=== PATIENT | male | born 1975 | race Caucasian/White ===

== ENCOUNTER 2023-09-08 11:11 | Emergency (ER) | payer OTHER, SELFPAY ==
[2023-09-08 11:22] VITALS: BP 172/88; PULSE 70; RESP 15; TEMP 37.3; O2SAT 94; O2SAT 97
[2023-09-08 11:23] VITALS: BP 172/88; PULSE 76; O2SAT 97
[2023-09-08 11:30] VITALS: O2SAT 94
[2023-09-08 11:31] VITALS: BP 177/110; PULSE 77; O2SAT 95
[2023-09-08 11:40] VITALS: O2SAT 96
--- NOTE | 2023-09-08 11:45 | DI.CT_ITS ---
Exam(s) CT CHEST/ABD/PEL W CT THORACIC LUMBAR SPINE REC EXAM: CT CHEST/ABD/PEL W CLINICAL HISTORY: trauma, fell and impacted rt flank and low back. TECHNIQUE: Imaging Protocol: Axial computed tomography images with coronal and sagittal reformatted images were created and reviewed. Axial, coronal and sagittal images were reconstructed from the chest abdomen and pelvic CT utilizing bone algorithm. CONTRAST MATERIAL: Intravenous: Omnipaque 350 Contrast volume:100 ml Oral: no COMPARISON: CT CT THORACIC LUMBAR SPINE REC from 09/08/2023 FINDINGS: CHEST: Tracheobronchial tree: Patent where visualized. Pulmonary parenchyma: No consolidation or dominant measurable mass. Pleura: No effusion or pneumothorax. Lymph nodes: Within normal limits. Aorta: Thoracic portion non-dilated. Heart: No pericardial effusion. Bones: Small endplate osteophytes. No lytic or blastic lesions.No compression fractures. Soft tissues: Unremarkable. ABDOMEN and PELVIS: Liver: Normal density. No measurable mass. Gallbladder and biliary tract: No evidence of stones or wall thickening. No biliary dilatation. Pancreas: Normal density, no abnormal calcifications or inflammatory process. Spleen: Normal. Kidneys: Normal size, contour and axis. No radiodense stones. No obstructive uropathy. No suspicious masses seen. Adrenal glands: No masses seen. Aorta: Abdominal portion non-dilated. Lymph nodes: Within normal limits. Soft tissues: Unremarkable. Bladder: Unremarkable. Bowel: No obstruction or bowel wall thickening. Peritoneal cavity: No ascites. No focal collection. No mesenteric inflammatory response. Bones: Nondisplaced fractures of right transverse processes of L1-L2. No additional fractures. Alig nment normal. Schmorl's node noted at the superior endplates of L2 and L3. No evidence of pelvic fr actures. Reproductive organs: Within normal limits. IMPRESSION: Transverse process fractures on the right at L1 and L2. No additional posttraumatic abnormalities. Findings called to Dr. Simmons of the emergency department. RADIATION DOSE DELIVERED: Total DLP DATA REPOSITORY: All CT scans at this facility are submitted to the National Radiology Data Registry (NRDR) Dose Index Registry (DIR) with the [employer] (A[employer]). RADIATION OPTIMIZATION: All CT scans at this facility use at least one of these dose optimization te chniques: automated exposure control; mA and/or kV adjustment per patient size (includes targeted exa ms where dose is matched to clinical indication); or iterative reconstruction.
--- NOTE | 2023-09-08 11:48 | ED.GENADUL_ITS ---
[facility] General Mode of arrival: ambulatory . Date/Time Provider Initiated Documentation: 09/08/23 11:36 . Limitations to Documentation: no limitations . Information obtained by: patient . HPI Narrative: 48-year-old male presents with chief complaint of right low back pain. Patient notes he slipped and fell on stairs yesterday and impacted his right flank/back. He has had pain since the fall. Pain is severe. Worse with deep inspiration and with bending or twisting. Patient notes significant pain when attempting to have a bowel movement today. No bright red blood per rectum. No hematuria. Patient did not his head or lose consciousness. Related Data Home Medications Medication Instructions Recorded Confirmed amlodipine 10 mg tablet 10 mg PO DAILY 09/08/23 09/08/23 ocqxncns-qvbmyurh-xsiwj acid 400 1 tab PO DAILY 09/08/23 09/08/23 mcg-vit K 20 mcg-lycop 300 mcg tablet oxycodone 5 mg tablet 5 mg PO DAILY PRN PRN severe pain 09/08/23 (scale score 7-10) #10 tabs Previous Rx's Medication Instructions Recorded oxycodone 5 mg tablet 5 mg PO DAILY PRN PRN severe pain 09/08/23 (scale score 7-10) #10 tabs Allergies Allergy/AdvReac Type Severity Reaction Status Date / Time No Known Allergies Allergy Unverified 09/08/23 13:54 General Stated Complaint: Nk/Back Pain ALEXA: 3 Review of Systems All systems reviewed & are unremarkable except as noted in HPI and below Constitutional Constitutional: Denies fever(s) Genitourinary Genitourinary: Reports as per HPI Musculoskeletal Musculoskeletal: Reports as per HPI Exam Const General: cooperative and no acute distress [facility] Mouth: moist mucous membranes Eyes Conjunctivae: normal conjunctivae Sclera: normal sclerae Neck Neck: trachea midline and supple Resp Auscultation: clear to auscultation bilaterally, no rales, no rhonchi and no wheezes Cardio Rate: regular rate and not tachycardic Rhythm: regular rhythm GI Palpation: soft, not firm, no guarding, no masses, not rigid and nontender Back/Spine/Pelvis Back: CVA tenderness (rt) and back tenderness Cervical Spine: cervical ROM normal and No cervical spinal tenderness Thoracic/Lumbar Spine: paraspinal tenderness (right upper lumbar), No thoracic spinal tenderness and lumbar spinal tenderness Skin General skin exam: no rashes or lesions noted Neuro General: patient alert, patient awake, patient oriented x3 and tone normal Extrem General: no edema Psych Appearance: grossly normal Mental Status: mental status grossly normal Course Vital Signs Vital signs: Vital Signs Temperature 37.3 C 09/08/23 11:22 Pulse 70 09/08/23 11:22 Respiratory Rate 15 09/08/23 11:22 Blood Pressure 172/88 H 09/08/23 11:22 Pulse Oximetry 94 09/08/23 11:22 Temperature 37.3 C 09/08/23 11:22 Temperature Source Oral 09/08/23 11:22 Pulse 70 09/08/23 11:22 Respiratory Rate 15 09/08/23 11:22 Respiratory Effort Normal 09/08/23 11:28 Blood Pressure 172/88 H 09/08/23 11:22 Blood Pressure Position Sitting 09/08/23 11:22 Pulse Oximetry 94 09/08/23 11:22 Oxygen Delivery Method Room Air 09/08/23 11:22 Oxygen Flow Rate 0 09/08/23 11:22 Pain Level 8 09/08/23 11:22 Medical Decision Making 1150 -- 48-year-old male with history of hypertension presents 1 day status post mechanical slip and fall on stairs with injury to his right low back and flank. Patient has severe pain with deep inspiration and with bending or twisting. He is focally tender in his right low back both over his upper lumbar spine and paraspinal as well as CVA tenderness. I am concerned about acute traumatic fracture of the rib versus retroperitoneal hemorrhage and renal injury. Plan to obtain CT of the chest abdomen pelvis to assess for acute traumatic injury. I will obtain spinal recons. 1545 --CT of the chest, abdomen, pelvis interpreted by radiology: Transverse process fractures on the right at L1 and L2. No additional posttraumatic abnormalities. CT of the thoracic and lumbar spine interpreted by radiology: Transverse process fractures on the right at L1 and L2. No additional posttraumatic abnormalities. I spoke with Dr. Pollard, trauma surgeon at [facility] [place], discussed ED presentation course, CTs were sent for review. Dr. Pollard recommends movement restrictions i ncluding no bending, lifting or twisting for the next 1 month. No other intervention needed at this time other than pain control. Treatment recommendations reviewed with the patient. Plan for discharge with outpatient follow-up with spinal specialist. Will treat with short course of oxycodone given severity of pain. Discussed risk of opioid treatment with the patient who provided informed consent. Lab Data Lab results reviewed: Yes I reviewed the patient's lab results. Labs: Laboratory Tests Range/Units 09/08/23 09/08/23 12:00 13:15 WBC (4.4-10.8) 10^3/uL 8.33 RBC (4.36-5.78) 10^6/uL 5.21 Hgb (13.5-17.5) g/dL 15.2 Hct (40.0-50.0) % 45.3 MCV (80-95) fL 87 MCH (27.0-33.0) pg 29.2 MCHC (32.0-36.0) % 33.6 RDW (11.8-14.1) % 13.2 Plt Count (130-400) 10^3/uL 260 MPV (8.0-11.0) fL 9.2 Immature Gran % 0.4 Neutrophils % 63.8 Lymphocytes % 26.3 Monocytes % 8.0 Eosinophils % 1.0 Basophils % 0.5 Nucleated RBC % (0.0-0.3) % 0.0 Absolute Neutrophils (1.2-6.7) 10^3/uL 5.32 Absolute Lymphocytes (1.2-3.4) 10^3/uL 2.19 Absolute Monocytes (0.1-0.8) 10^3/uL 0.67 Absolute Eosinophils (0.0-0.7) 10^3/uL 0.08 Absolute Basophils (0.0-0.2) 10^3/uL 0.04 Sodium (136-145) mmol/L 144 Potassium (3.5-5.1) mmol/L 3.7 Chloride (98-107) mmol/L 106 Carbon Dioxide (21.0-32.0) mmol/L 28.0 Anion Gap (3-11) mmol/L 10.0 BUN (7-18) mg/dL 14 Creatinine (0.70-1.30) mg/dL 0.9 Est GFR (CKD-EPI 2020) (mL/min/1.73m2) 106.01 Glucose (74-106) mg/dL 101 Calcium (8.5-10.1) mg/dL 10.0 Total Bilirubin (0.2-1.0) mg/dL 0.5 AST (15-37) U/L 14 L ALT (16-63) U/L 38 Alkaline Phosphatase (46-116) U/L 74 Total Protein (6.4-8.2) g/dL 8.4 H Albumin (3.4-5.0) g/dL 4.3 Urine Color (Yellow) Yellow Urine Clarity (Clear) Clear Urine pH (5-8) 6.0 Ur Specific [place] (1.005-1.025) 1.015 Urine Protein (Neg-Trace) mg/dL Negative Urine Ketones (Negative) mg/dL Negative Urine Blood (Negative) Negative Urine Nitrite (Negative) Negative Urine Bilirubin (Negative) Negative Urine Urobilinogen (Up to 0.2) mg/dL 0.2 Ur Leukocyte Esterase (Negative) Negative Urine Glucose (Negative) mg/dL Negative Patient ABO/Rh A Positive Antibody Screen NEGATIVE Quality:SDOH Health Related Social Needs: No Data to Display PFSH All Active Problems (Updated 09/08/23 @ 15:53 by Artem Simmons MD) Fall on stairs (Acute) Closed fracture of transverse process of lumbar vertebra (Acute) Social History Smoking risk assessment performed?: No PAWSS Have you Been Recently Intoxicated or Drunk Within the Last 30 days?: No Have you Ever Experienced Previous Episodes of Alcohol Withdrawal?: No Have you ever Experienced Withdrawal Seizures?: No Have you ever Experienced Delirium Tremens(DT)s?: No Have you ever undergone Alcohol Rehabilitation Treatment (i.e, inpt ot outpatient treatment programs)?: No Have you ever Experienced Blackouts?: No Have you ever Combined Alcohol with other Downers within the last 90 days?: No Have you ever Combined Alcohol with any other Substance of Abuse during the last 90 days?: No Positive Blood Alcohol level on Presentation? [PCS.BAL]: No Evidence of Increased Autonomic Activity (i.e. HR>120, tremor, sweating, agitation, nausea)?: No Result: 0 Discharge Plan Disposition Patient Disposition: Home Condition: Stable Discharge Details Clinical Impression: Closed fracture of transverse process of lumbar vertebra, Fall on stairs Primary Care Provider: No,Local ED Provider: Artem Simmons Home Meds and New Rx's Prescriptions: New oxycodone 5 mg tablet 5 mg PO DAILY PRN PRN (Reason: severe pain (scale score 7-10)) Qty: 10 0RF Continued amlodipine 10 mg tablet 10 mg PO DAILY cmsuewjl-khk-hvwes-vit K-lycop 400-20-300 mcg tablet 1 tab PO DAILY Discharge Instructions Instructions: Oxycodone, Rapid Release (By mouth), Transverse Process Fracture (ED) Additional Instructions: Please take ibuprofen over the counter. Take 600mg by mouth every 6 hours as needed for pain. Use tbhv-aou-kxpiega lidocaine patches. Dose according to label. Please take acetaminophen (tylenol) - 650mg every 6 hours by mouth as needed for pain. Please avoid any activities that worsen pain. Restrict your movements to include no bending, no lifting, no twisting. Please follow-up with a spinal home health billing specialist. Call today/tomorrow to arrange timely follow-up. Please contact your primary care physician to arrange follow-up. Return to the ER immediately for any worsening or new concerning symptoms.
[2023-09-08] MEDS: ACETAMINOPHEN 1,000 MG/100 ML BTL 400 MG IVPB (12:12)
[2023-09-08 12:13] LABS: Abs Immature Grans 0.03 10^3/uL (0.0-0.06); Absolute Basophil Count 0.04 10^3/uL (0.0-0.2); Absolute Eosinophil Count 0.08 10^3/uL (0.0-0.7); Absolute Lymphocyte Count 2.19 10^3/uL (1.2-3.4); Absolute Monocyte Count 0.67 10^3/uL (0.1-0.8); Absolute Neutrophil Count 5.32 10^3/uL (1.2-6.7); Basophils % 0.5; HCT 45.3 % (40.0-50.0); HGB 15.2 g/dL (13.5-17.5); Immature Grans % 0.4; Lymphocytes % 26.3; MCH 29.2 pg (27.0-33.0); MCHC 33.6 % (32.0-36.0); MCV 87 fL (80-95); MPV 9.2 fL (8.0-11.0); Neutrophils % 63.8; Platelet Count 260 10^3/uL (130-400); RBC 5.21 10^6/uL (4.36-5.78); RDW 13.2 % (11.8-14.1); RDW-SD 42.3 fL; WBC 8.33 10^3/uL (4.4-10.8)
[2023-09-08 12:40] LABS: ALT 38 U/L (16-63); AST 14 U/L (15-37); Albumin 4.3 g/dL (3.4-5.0); Alkaline Phosphatase 74 U/L (46-116); BUN 14 mg/dL (7-18); Bilirubin, Total 0.5 mg/dL (0.2-1.0); CREATININE 0.9 mg/dL (0.70-1.30); Chloride 106 mmol/L (98-107); Estimated GFR 106.01 (mL/min/1.73m2); Glucose 101 mg/dL (74-106); Potassium 3.7 mmol/L (3.5-5.1); Sodium 144 mmol/L (136-145); Total Protein 8.4 g/dL (6.4-8.2)
[2023-09-08] MEDS: Omnipaque 350 MG/ML 100 ML BTL IJ (12:52)
[2023-09-08 13:28] LABS: Bilirubin Negative (Negative); Blood Negative (Negative); Clarity Clear (Clear); Glucose Negative (Negative); Ketones Negative (Negative); Leukocyte Esterase Negative (Negative); Nitrite Negative (Negative); Specific Gravity 1.015 (1.005-1.025); Urobilinogen 0.2 mg/dL (Up to 0.2)
[2023-09-08] MEDS: HYDROmorphone 2 MG/ML SYR 1 MG IVP (13:50)
--- NOTE | 2023-09-08 14:47 | NUR.NOTE ---
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 Nursing Note:
[2023-09-08] MEDS: Lidocaine 5% Patch 1 PATCH TP (15:39)
[2023-09-08 16:46] VITALS: BP 177/110; PULSE 77; RESP 15; TEMP 37.3; O2SAT 96
== END 2023-09-08 16:18 | disposition home or self-care (01) ==
PROVIDERS: Emergency Provider Student in an Organized Health Care Education/Training Program
DX: S32.019A Unspecified fracture of first lumbar vertebra, initial encounter for closed fracture (principal); M51.46 Schmorl's nodes, lumbar region; S32.029A Unspecified fracture of second lumbar vertebra, initial encounter for closed fracture; W10.8XXA Fall (on) (from) other stairs and steps, initial encounter; Y93.01 Activity, walking, marching and hiking; Y92.89 Other specified places as the place of occurrence of the external cause
CPT/HCPCS: 36415; 74177; 80053; 86850; 86900; 86901; 96374; 96375; 99285; 71260; 81003; 85025; 99284; J0131; J1170; J3490